=== PATIENT | male | born 1950 | race Caucasian/White ===

== ENCOUNTER → 2020-02-07 | Outpatient (CLI) | payer MEDICARE, BC ==
[~2020-02-07] MED LIST: CALC400T6 PO; OMEP20TA62 PO
== END | disposition home or self-care (01) ==
LOC: RAD 09:01
PROVIDERS: ATTEND Thoracic Surgery (Cardiothoracic Vascular Surgery)
DX: R13.10 Dysphagia, unspecified (principal)
CPT/HCPCS: 74240

== ENCOUNTER 2020-03-14 06:17 | Day surgery (SDC) | payer MEDICARE, BC ==
[~2020-03-14] VITALS: Ht 180.3 cm; Wt 80.8 kg
[2020-03-14] MEDS ORDERED: CHLORHEXIDINE 15 ML UDC MM STA (06:38)
[2020-03-14 06:46] VITALS: BP 124/70
[2020-03-14] MEDS: LACTATED RINGERS 1,000 ML IV SCH ×2 (07:03→07:07)
[2020-03-14] MEDS ORDERED: FENTANYL PF 100 MCG/2ML IV PRN (08:00)
[2020-03-14] MEDS ORDERED: NEOSTIGMINE 1 MG/ML, 10ML ONE (08:18)
[2020-03-14] MEDS ORDERED: SUCCINYLCHOLINE 20 MG/ML, 10ML ONE (08:18)
[2020-03-14] MEDS ORDERED: DEXAMETHASONE 4 MG/ML, 1ML ONE (08:18)
[2020-03-14] MEDS ORDERED: ROCURONIUM 10MG/ML,5ML ONE (08:18)
[2020-03-14] MEDS ORDERED: ONDANSETRON 2MG/ML, 2ML ONE (08:18)
[2020-03-14] MEDS ORDERED: PROPOFOL 10 MG/ML, 20ML ONE (08:18)
[2020-03-14] MEDS ORDERED: GLYCOPYRROLATE 0.2MG/1ML, 5ML ONE (08:18)
[2020-03-14] MEDS ORDERED: CEFAZOLIN 1,000 MG ONE (08:18)
== END 2020-03-14 10:00 | disposition home or self-care (01) ==
LOC: OUT 06:17
PROVIDERS: ATTEND Thoracic Surgery (Cardiothoracic Vascular Surgery)
DX: K22.2 Esophageal obstruction (principal); K21.9 Gastro-esophageal reflux disease without esophagitis; Z98.890 Other specified postprocedural states
CPT/HCPCS: 43249; 93005; C1725; J0330; J1100; J2405; J2704; J7120; J0690; J2710

== ENCOUNTER 2021-05-17 09:38 | Emergency (ER) | payer MEDICARE, BC ==
[~2021-05-17] VITALS: Ht 180.3 cm; Wt 83.2 kg
--- NOTE | 2021-05-17 09:42 | NUR ---
CALL X1 NOT IN LOBBY
--- NOTE | 2021-05-17 10:23 | NUR ---
US AT BEDSIDE.
[2021-05-17 12:17] VITALS: BP 121/61
== END 2021-05-17 12:19 | disposition home or self-care (01) ==
LOC: ED 11:25
DX: M79.651 Pain in right thigh (principal)
CPT/HCPCS: 99284